=== PATIENT | male | born 1975 | race Caucasian/White ===

== ENCOUNTER → 2017-03-29 | Outpatient (CLI) | payer BC | LOC: BMCIMAGING 10:58 | PROVIDERS: ATTEND Emergency Medicine | DX: R05 Cough (principal); R50.9 Fever, unspecified ==

== ENCOUNTER 2018-02-22 15:21 | Inpatient (IN) | payer BC, OTHER ==
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
[2018-02-22] MEDS ORDERED: VANCOMYCIN HCL/NORMAL SALINE 250 ML IV ONE (15:47)
[2018-02-22 16:07] LABS: PLATELET COUNT 196 10^3/uL (150-400)
[2018-02-22] MEDS ORDERED: HYDROCODONE/APAP 5/325 TAB PO ONE (16:17)
[2018-02-22] MEDS ORDERED: ONDANSETRON DISINTEGRATING 4 MG TAB PO PRN (16:20)
[2018-02-22] MEDS ORDERED: ONDANSETRON 4 MG/2 ML VIAL IVP PRN (16:20)
[2018-02-22] MEDS ORDERED: ACETAMINOPHEN 325 MG TAB PO PRN (16:20)
[2018-02-22 17:18] LABS: INR 1.01 (0.83-1.16); PROTIME(PATIENT) 13.5 SEC (12.0-15.0)
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
[2018-02-22] MEDS: HYDROCODONE/APAP 5/325 TAB PO PRN (22:27)
[2018-02-23] MEDS: HYDROCODONE/APAP 5/325 TAB PO PRN ×2 (05:21→09:32)
[2018-02-23] MEDS ORDERED: INDAPAMIDE 2.5 MG TAB PO PRN (08:57)
[2018-02-23 09:59] LABS: PLATELET COUNT 194 10^3/uL (150-400)
--- NOTE | 2018-02-23 10:45 | SOAPPROG ---
SOAP Progress Note Assessment/Plan: Assessment: Pt is a 42 year old male now 3 days s/p laceration to the right forearm. He has been on IV antibiotics since yesterday and reports the pain has remained the same. He reports the elbow is non-painful with gentle ROM. PE: Erythema surrounding the elbow has worsened since yesterday. 3 cm jagged laceration on the dorsal radial forearm without drainage. Olecranon bursa is mildly swollen and now tender to touch. NV intact the the RUE. White count has elevated slightly and is now 9.88 (up from 9.22 yesterday) Vital signs are normal. Wound cultures still pending Plan: Patient is status post right elbow laceration with surrounding infection worsened since yesterday despite IV antibiotics. We will plan to take him to the operating room this afternoon for irrigation and debridement. He is to remain NPO at this time in preparation for surgery this afternoon. 02/23/18 10:39 Objective: Vital Signs Temp Pulse Resp BP Pulse Ox 36.9 C 72 14 116/64 94 02/23/18 08:00 02/23/18 08:00 02/23/18 08:00 02/23/18 08:00 02/23/18 08:00 Laboratory Results 02/23/18 09:50 02/22/18 02/23/18 02/24/18 05:59 05:59 05:59 Intake Total 200 Balance 200 PT 13.5 SEC (12.0-15.0) 02/22/18 15:55 INR 1.01 (0.83-1.16) 02/22/18 15:55 ICD10 Worksheet Patient Problems: Problems Problem Status Onset Cellulitis of right elbow Acute
[2018-02-23] MEDS: VANCOMYCIN 1.5 GM in D5W 250 ML IV SCH ×2 (11:05→23:24)
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
[2018-02-23] MEDS ORDERED: POLYMYXIN B SULFATE 500,000 UNIT/10 ML SYR IRR ONE (16:36)
[2018-02-23] MEDS ORDERED: LR 1,000 ML IV ONE (16:50)
--- NOTE | 2018-02-23 17:00 | PDMN ---
Medical Necessity Medical necessity: Pt meets INPT criteria per PRODUCT ENGINEER/MD as of 02/23/18 and [place] M-70 Cellulitis (R elbow cellulitis with failure of outpt tx; requiring surgical intervention, IVABx).
[2018-02-23] MEDS ORDERED: MIDAZOLAM 2 MG/2 ML VIAL ONE (17:15)
[2018-02-23] MEDS ORDERED: MIDAZOLAM 2 MG/2 ML VIAL IVP ONE (17:16)
--- NOTE | 2018-02-23 17:16 | PDANEPAE ---
ANE Past Medical History - Pulmonary History Hx Oxygen in Use at Home: No Hx Sleep Apnea: No Sleep Apnea Screening Result - Last Documented: Negative - Endocrine History Hx Diabetes: No ANE Review of Systems Review of Systems: ANE Patient History - Allergies Allergies/Adverse Reactions: No Known Allergies Allergy (Unverified 02/22/18 15:23) - Home Medications Home Medications: Cephalexin [Keflex (*)] 1,000 mg PO BID 02/22/18 [Last Taken 02/22/18 09:00] Hydrocodone/Acetaminophen [[place] 5/325 (*)] 1 each PO Q6 PRN 02/22/18 [Last Taken 02/22/18 16:00] Indapamide [Indapamide 2.5 mg (*)] 5 mg PO DAILY PRN 02/22/18 [Last Taken ] - NPO status NPO Since - Liquids (Date): 02/22/18 NPO Since - Solids (Date): 02/22/18 - Smoking Hx Smoking Status: Never smoked ANE Labs/Vital Signs - Labs Result Diagrams: 02/23/18 09:50 02/22/18 15:55 - Vital Signs Blood Pressure: 114/63 Heart Rate: 77 Respiratory Rate: 12 O2 Sat (%): 96 Height: 185.42 cm Weight: 99.79 kg ANE Physical Exam - Airway Neck exam: FROM Mallampati Score: Class 2 Mouth exam: normal dental/mouth exam - Pulmonary Pulmonary: no respiratory distress - Cardiovascular Cardiovascular: regular rate and rhythym - ASA Status ASA Status: I ANE Anesthesia Plan Anesthesia Plan: GA w LMA
[2018-02-23] MEDS ORDERED: fentaNYL 100 MCG/2 ML INJ ONE ×3 (17:21→18:42)
[2018-02-23] MEDS ORDERED: DEXAMETHASONE 4 MG/ML VIAL ONE (17:22)
[2018-02-23] MEDS ORDERED: PROPOFOL 200 MG/20 ML VIAL ONE (17:22)
[2018-02-23] MEDS ORDERED: LIDOCAINE 2% 5 ML SDV ONE (17:22)
[2018-02-23] MEDS: BUPIVACAINE/EPI 0.5% 30 ML SDV ONE ×2 (18:14→18:24)
--- NOTE | 2018-02-23 18:33 | POSTOPPROG ---
Post Op Note Date of Operation: 02/23/18 Surgeon: Lissett Salinas Anesthesia: LMA Pre-op Diagnosis: r elbow infection Procedure: I&D r elbow Inf/Abcess present in the surg proc area at time of surgery?: Yes Depth: Deep Incisional (Fascial) EBL: 50-100 Drains: Salena
[2018-02-23] MEDS ORDERED: ONDANSETRON 4 MG/2 ML VIAL IVP PRN (18:37)
[2018-02-23] MEDS ORDERED: ALBUTEROL 3 ML DEYVIAL IH PRN (18:37)
[2018-02-23] MEDS ORDERED: NALOXONE HCL 0.4 MG/ML INJ IVP PRN (18:37)
--- NOTE | 2018-02-23 18:37 | POSTANESTH ---
Post Anesthetic Evaluation Cardiovascular Status: Similar to Pre-Op Cond Respiratory Status: Similar to Pre-op Cond. Level of Consciousness/Mental Status: Mildly Sleepy, Arousable Pain Control: Adequate, Prn Tx Ordered Nausea/Vomiting Control: Adequate, Prn Tx Ordered Complications Possibly Related to Anesthesia: None Noted
[2018-02-23] MEDS: fentaNYL 100 MCG/2 ML INJ IVP PRN ×2 (18:42→18:51)
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
[2018-02-24] MEDS: HYDROCODONE/APAP 5/325 TAB PO PRN ×2 (04:52→11:16)
[2018-02-24 07:45] VITALS: BP 125/81
--- NOTE | 2018-02-24 10:26 | SOAPPROG ---
SOAP Progress Note Assessment/Plan: Assessment: Plan: Subjective: states he feels better and relatively comfortable decreased erythema and swelling NVI consider DC FU in office on Monday for dressing change and drain advancement Objective: Vital Signs Temp Pulse Resp BP Pulse Ox 36.7 C 69 16 125/81 H 96 02/24/18 07:44 02/24/18 07:44 02/24/18 07:44 02/24/18 07:44 02/24/18 07:44 02/23/18 02/24/18 02/25/18 05:59 05:59 05:59 Intake Total 1500 Output Total 600 Balance 900 PT 13.5 SEC (12.0-15.0) 02/22/18 15:55 INR 1.01 (0.83-1.16) 02/22/18 15:55 ICD10 Worksheet Patient Problems: Problems Problem Status Onset Cellulitis of right elbow Acute
[2018-02-24] MEDS ORDERED: ERTAPENEM 1 GM in NS 100 ML IV SCH (10:30)
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
[2018-02-24] MEDS ORDERED: DOXYCYCLINE HYCLATE 100 MG CAP/TAB PO SCH (10:45)
--- NOTE | 2018-02-24 10:55 | ASMTLACE ---
[facility] Length of stay for Answers: 1 day current admission Acuity / Level of Answers: Yes Care: Did the patient have an inpatient admission? # of Emergency department Answers: 1-2 visits in the last 6 months Score: 5 Date Signed: 02/24/2018 10:54 AM Electronically Signed By:Anna Light RN
--- NOTE | 2018-02-24 11:12 | ASMTCMCOM ---
CM Note CM Note Notes: Spoke w/MD, pt can do home IV infusion or Out pt infusion for 3 days. CM spoke with pt and he prefers to come to the infusion center here. Appointments set for Sun/Mon/Tue at 3:30 and we discussed that the first day he will need to check in downstairs. DC Plan: Outpt infusion/ Independent Date Signed: 02/24/2018 11:12 AM Electronically Signed By:Anna Light RN
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
== END 2018-02-24 12:03 | disposition home or self-care (01) | DRG 507 ==
LOC: F3E 17:31 → OBSVTOIN 02-23 16:05
PROVIDERS: ADMIT Internal Medicine; ATTEND Internal Medicine
PROC: 0R9L00Z Drainage of Right Elbow Joint with Drainage Device, Open Approach (ICD-10-PCS; principal; 2018-02-23 17:15)
DX: M71.121 Other infective bursitis, right elbow (principal); L03.113 Cellulitis of right upper limb; S51.011A Laceration without foreign body of right elbow, initial encounter; S22.32XA Fracture of one rib, left side, initial encounter for closed fracture; V19.9XXA Pedal cyclist (driver) (passenger) injured in unspecified traffic accident, initial encounter; Y93.55 Activity, bike riding; Z87.442 Personal history of urinary calculi
CPT/HCPCS: 96365; G0378; J0690; J1100; J1335; J2250; J2270; J2704; J3010; J3370